=== PATIENT | male | born 1975 | race Caucasian/White ===

== ENCOUNTER 2016-12-28 13:20 | Emergency (ER) | payer OTHER ==
[2016-12-28 14:16] LABS: BASOPHIL 0.4 % (0-2); EOSINOPHIL 4.5 % (0-5); HCT 45.1 % (42.0-52.0); HGB 15.3 g/dl (13.2-18.0); LYMPHOCYTE 17.8 % (15-48); MCH 27.7 pg (25.0-31.0); MCHC 33.9 g/dL (32.0-36.0); MCV 81.7 fL (78.0-100.0); MONOCYTE 8.3 % (0-12); MPV 9.3 fL (6.0-9.5); PLT 392 K/uL (150-400); RBC 5.52 M/uL (4.70-6.00); RDW 15.1 % (11.5-14.0); WBC 12.4 K/uL (4.0-10.5)
[2016-12-28 14:24] LABS: ALBUMIN 4.9 g/dL (3.5-5.0); BILIRUBIN - TOTAL 0.2 mg/dL (0.1-1.0); CREATININE 1.2 mg/dL (0.7-1.2); GLOBULIN (CALCULATION) 3.1 g/dL (2.2-4.2); POTASSIUM 3.6 mmol/L (3.5-5.1)
[2016-12-28 14:25] LABS: CKMB 1.71 ng/mL (0.97-4.94); TROPONIN T < 0.010 ng/mL
[2017-05-10] MEDS ORDERED: GLUCOPHAGE1000 MG PO (10:43)
[2017-05-10] MEDS ORDERED: VISTARIL50 MG PO (10:44)
[2017-05-10] MEDS ORDERED: PRINIVIL10 MG PO (10:44)
[2017-05-10] MEDS ORDERED: TRAZODONE 100M100 MG PO (10:44)
[2017-05-10] MEDS ORDERED: PRILOSEC20 MG PO (10:44)
[2017-05-10] MEDS ORDERED: LEXAPRO20 MG PO (10:45)
[2017-05-10] MEDS ORDERED: CLARITIN10 MG PO (10:45)
[2017-05-10] MEDS ORDERED: LEVEMIR VI100 UNITS/ SC (10:45)
[2017-05-10] MEDS ORDERED: LEVAQUIN500 MG PO (10:45)
[2017-05-10] MEDS ORDERED: LACTINEX1 EACH PO (10:45)
[2017-05-10] MEDS ORDERED: ACETAMINOPHEN325 MG PO (10:46)
== END 2016-12-28 16:22 | disposition home or self-care (01) ==
LOC: FER 13:20
PROVIDERS: Emergency Medicine
DX: R07.89 Other chest pain (principal); E11.9 Type 2 diabetes mellitus without complications; F17.210 Nicotine dependence, cigarettes, uncomplicated; Z88.0 Allergy status to penicillin; Z88.1 Allergy status to other antibiotic agents; Z88.5 Allergy status to narcotic agent; Z79.84 Long term (current) use of oral hypoglycemic drugs
CPT/HCPCS: 36415; 71020; 80053; 82550; 82553; 84484; 85025; 93005

== ENCOUNTER 2016-12-30 22:10 | Emergency (ER) | payer OTHER ==
[2016-12-30 22:56] LABS: HCT 42.4 % (42.0-52.0); HGB 14.4 g/dl (13.2-18.0); MCH 28.1 pg (25.0-31.0); MCV 82.8 fL (78.0-100.0); PLT 374 K/uL (150-400); RBC 5.12 M/uL (4.70-6.00); WBC 12.7 K/uL (4.0-10.5)
[2016-12-30 22:57] LABS: BILIRUBIN NEGATIVE (NEGATIVE); BLOOD NEGATIVE Ery/uL (NEGATIVE); CLARITY CLEAR (CLEAR); COLOR YELLOW (YELLOW); GLUCOSE (U) NORMAL (NORMAL); KETONE (U) NEGATIVE (NEGATIVE); LEUKOCYTES NEGATIVE Leu/uL (NEGATIVE); NITRITE NEGATIVE (NEGATIVE); PROTEIN TRACE (LOW) mg/dL (NEGATIVE); SPECIFIC GRAVITY >=1.030 (1.001-1.030); UROBILINOGEN 0.2 mg/dL (0.2-1.0); pH 5.5 (5.0-9.0)
[2016-12-30 23:07] LABS: AMPHETAMINES NEGATIVE (NEGATIVE); BARBITURATES NEGATIVE (NEGATIVE); BENZODIAZEPINES NEGATIVE (NEGATIVE); COCAINE NEGATIVE (NEGATIVE); MARIJUANA (THC) NEGATIVE (NEGATIVE); METHADONE NEGATIVE (NEGATIVE); TRICYCLIC ANTIDEPRESSANT NEGATIVE (NEGATIVE)
[2016-12-30 23:10] LABS: ALBUMIN 4.7 g/dL (3.5-5.0); BILIRUBIN - TOTAL 0.2 mg/dL (0.1-1.0); CREATININE 1.1 mg/dL (0.7-1.2); POTASSIUM 3.6 mmol/L (3.5-5.1); TOTAL PROTEIN 7.7 g/dL (6.4-8.3)
[2016-12-30 23:11] LABS: ACETAMINOPHEN (TYLENOL) < 5.0 ug/mL (10.0-30.0); ALCOHOL (ETOH) MEDICAL NONE DETECTED; SALICYLATE < 6 ug/mL (0-300)
[2017-05-10] MEDS ORDERED: GLUCOPHAGE1000 MG PO (10:43)
[2017-05-10] MEDS ORDERED: PRINIVIL10 MG PO (10:44)
[2017-05-10] MEDS ORDERED: TRAZODONE 100M100 MG PO (10:44)
[2017-05-10] MEDS ORDERED: VISTARIL50 MG PO (10:44)
[2017-05-10] MEDS ORDERED: PRILOSEC20 MG PO (10:44)
[2017-05-10] MEDS ORDERED: LEVEMIR VI100 UNITS/ SC (10:45)
[2017-05-10] MEDS ORDERED: LEXAPRO20 MG PO (10:45)
[2017-05-10] MEDS ORDERED: CLARITIN10 MG PO (10:45)
[2017-05-10] MEDS ORDERED: LACTINEX1 EACH PO (10:45)
[2017-05-10] MEDS ORDERED: LEVAQUIN500 MG PO (10:45)
[2017-05-10] MEDS ORDERED: ACETAMINOPHEN325 MG PO (10:46)
== END 2016-12-31 03:07 | disposition home or self-care (01) ==
LOC: FER 22:10
PROVIDERS: Emergency Medicine
DX: T38.3X2A Poisoning by insulin and oral hypoglycemic [antidiabetic] drugs, intentional self-harm, initial encounter (principal); T43.592A Poisoning by other antipsychotics and neuroleptics, intentional self-harm, initial encounter; R11.10 Vomiting, unspecified; F32.9 Major depressive disorder, single episode, unspecified; Z88.1 Allergy status to other antibiotic agents; Z88.5 Allergy status to narcotic agent; Z91.5 Personal history of self-harm; Z79.899 Other long term (current) drug therapy
CPT/HCPCS: 36415; 80053; 80305; 81001; 83605; 99285; G0480